=== PATIENT | female | born 2000 | race Hispanic/Latino ===

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

== ENCOUNTER 2022-12-08 00:02 | Emergency (ER) | payer MEDICAID ==
[~2022-12-08] VITALS: Ht 172.7 cm; Wt 56.7 kg
[2022-12-08] MEDS ORDERED: MAG/ALUM/SIMETH 30 ML UDCUP PO ONE (00:30)
[2022-12-08] MEDS ORDERED: DICYCLOMINE HCL 10 MG/5 ML ML PO ONE (00:30)
[2022-12-08] MEDS ORDERED: ONDANSETRON 4MG INJ IVP ONE ×2 (00:30→10:00)
[2022-12-08 00:51] LABS: BASOPHILS % (AUTO) 0.5 % (0.0-5.0); EOSINOPHILS % (AUTO) 2.7 % (0.0-8.0); HEMATOCRIT 37.8 % (36-48); MEAN CORPUSCULAR HEMOGLOBIN 29.1 pg (27.0-33.0); MEAN CORPUSCULAR HGB CONC 33.6 g/dL (32.0-36.0); MEAN CORPUSCULAR VOLUME 86.5 fL (80-100); MONOCYTES % (AUTO) 6.2 % (3.0-13.0); NEUTROPHILS % (AUTO) 53.5 % (40.0-77.0); PLATELET COUNT (AUTO) 245 K/uL (130-400); RED BLOOD CELL COUNT(AUTO) 4.37 MIL/uL (4.00-5.50); RED CELL DISTRIBUTION WIDTH 12.5 % (11.0-15.5)
[2022-12-08 01:00] LABS: CREATININE 0.6 mg/dL (0.5-1.5); POTASSIUM 3.1 mmol/L (3.5-5.1)
[2022-12-08 01:04] LABS: ALBUMIN 4.1 g/dL (3.5-5.0); TOTAL PROTEIN, SERUM 7.8 g/dL (6.0-8.3)
[2022-12-08 02:19] LABS: APPEARANCE,URINE CLEAR (CLEAR); BILIRUBIN,URINE NEGATIVE (NEGATIVE); COLOR,URINE COLORLESS (YELLOW); GLUCOSE, URINE (UA) NEGATIVE (NEGATIVE); KETONES,URINE NEGATIVE (NEGATIVE); LEUKOCYTE ESTERASE ,URINE NEGATIVE Leu/uL (NEGATIVE); NITRATE,URINE NEGATIVE (NEGATIVE); OCCULT BLOOD,URINE NEGATIVE (NEGATIVE); PH,URINE 6.5 (5.0-8.0); PROTEIN,URINE NEGATIVE (NEGATIVE); UROBILINOGEN,URINE 0.2 mg/dL (0.2-1.0)
[2022-12-08 02:24] LABS: HCG,QUALITATIVE URINE NEGATIVE (NEGATIVE)
[2022-12-08] MEDS ORDERED: POTASSIUM BICARB/CIT AC 25 MEQ TABLET.EFF PO ONE (02:30)
[2022-12-08] MEDS ORDERED: 0.9%NACL 1000ML 1,000 ML IV ONE (02:30)
[2022-12-08] MEDS ORDERED: MORPHINE 4 MG SYG IVP ONE (02:30)
[2022-12-08] MEDS ORDERED: KETOROLAC 30MG VIAL (30MG/ML) IVP ONE (04:30)
[2022-12-08] MEDS ORDERED: IOHEXOL 350 MG/ML 100ML INFUS..BTL IV ONE (06:22)
[2022-12-08] MEDS ORDERED: ONDA4TAB10 PO (09:50)
[2022-12-08] MEDS ORDERED: DICY20TA2 PO (09:50)
[2022-12-08] MEDS ORDERED: TRAM50TA4 PO (09:50)
[2022-12-08] MEDS ORDERED: MORPHINE 2 MG SYG IVP ONE (10:00)
[2022-12-08 11:04] VITALS: BP 106/60
[2022-12-09] MEDS ORDERED: HYDR-4060 PO (12:03)
== END 2022-12-08 11:38 | disposition home or self-care (01) ==
LOC: EDH 00:02
DX: R10.84 Generalized abdominal pain (principal); R11.0 Nausea; R19.7 Diarrhea, unspecified; F41.9 Anxiety disorder, unspecified; F32.9 Major depressive disorder, single episode, unspecified; J45.909 Unspecified asthma, uncomplicated; Z91.010 Allergy to peanuts
CPT/HCPCS: 99285; 74177; 96374; 96375; 96361; 82270; 80053; 83690; 85025; 81003; 81025; 36415; 96376; J7030; J2405 ×2; J2270; J1885; Q9967

== ENCOUNTER 2023-09-07 15:06 | Emergency (ER) | payer MEDICAID, OTHER ==
[~2023-09-07] VITALS: Ht 172.7 cm; Wt 58.1 kg
[~2023-09-07 15:06] MED LIST: DICY20TA2 PO; HYDR-4060 PO; ONDA4TAB10 PO; TRAM50TA4 PO
[2023-09-07] MEDS ORDERED: METOCLOPRAMIDE 10 MG/2 ML VIAL IVP ONE (15:30)
[2023-09-07] MEDS ORDERED: DEXAMETHASONE SOD PHOSPHATE 4 MG/ML 1ML VIAL IVP ONE (15:30)
[2023-09-07] MEDS ORDERED: 0.9%NACL 1000ML 1,000 ML IV ONE (15:30)
[2023-09-07] MEDS ORDERED: DiphenhydrAMINE HCL 50 MG/ML VIAL IV ONE (15:30)
[2023-09-07 16:13] LABS: BASOPHILS # (AUTO) 0.03 K/uL (0.00-0.20); BASOPHILS % (AUTO) 0.5 % (0.0-5.0); EOSINOPHILS # (AUTO) 0.19 K/uL (0.00-0.70); EOSINOPHILS % (AUTO) 3.2 % (0.0-8.0); HEMATOCRIT 34.5 % (36-48); IMMATURE GRANULOCYTE ABSOLUTE 0.02 K/uL (0-1); LYMPHOCYTES # (AUTO) 1.8 K/uL (1.0-4.8); LYMPHOCYTES % (AUTO) 29.9 % (21.0-51.0); MEAN CORPUSCULAR HEMOGLOBIN 29.6 pg (27.0-33.0); MEAN CORPUSCULAR HGB CONC 33.3 g/dL (32.0-36.0); MEAN CORPUSCULAR VOLUME 88.9 fL (80-100); MONOCYTES # (AUTO) 0.4 K/uL (0.1-1.0); NEUTROPHILS # (AUTO) 3.6 K/uL (1.8-7.7); NEUTROPHILS % (AUTO) 60.1 % (40.0-77.0); PLATELET COUNT (AUTO) 250 K/uL (130-400); RED BLOOD CELL COUNT(AUTO) 3.88 MIL/uL (4.00-5.50); RED CELL DISTRIBUTION WIDTH 12.4 % (11.0-15.5)
[2023-09-07 16:24] LABS: CREATININE 0.6 mg/dL (0.5-1.5); POTASSIUM 3.9 mmol/L (3.5-5.1)
[2023-09-07 16:28] LABS: ALBUMIN 3.7 g/dL (3.5-5.0); BILIRUBIN,TOTAL 0.1 mg/dL (0.2-1.0); TOTAL PROTEIN, SERUM 7.3 g/dL (6.0-8.3)
[2023-09-07 16:42] LABS: APPEARANCE,URINE CLOUDY (CLEAR); BILIRUBIN,URINE NEGATIVE (NEGATIVE); COLOR,URINE YELLOW (YELLOW); GLUCOSE, URINE (UA) NEGATIVE (NEGATIVE); KETONES,URINE 5 mg/dL (NEGATIVE); LEUKOCYTE ESTERASE ,URINE NEGATIVE Leu/uL (NEGATIVE); NITRATE,URINE NEGATIVE (NEGATIVE); OCCULT BLOOD,URINE MODERATE (NEGATIVE); PROTEIN,URINE 20 mg/dL (NEGATIVE); UROBILINOGEN,URINE 0.2 mg/dL (0.2-1.0)
[2023-09-07 16:43] LABS: HCG,QUALITATIVE URINE NEGATIVE (NEGATIVE)
[2023-09-07 16:49] LABS: ADD UA MICROSCOPIC YES
[2023-09-07 17:02] LABS: BACTERIA,URINE RARE /HPF (None Seen); MUCUS,URINE FEW LPF (None Seen); SQUAMOUS EPITHELIAL CELL,UR FEW /HPF (0-2); UNCLASSIFIED CRYSTAL 6 /HPF (None Seen)
[2023-09-07 17:44] VITALS: BP 109/63; PULSE 64; RESP 16; O2SAT 100
[2023-09-07] MEDS ORDERED: FIORIT PO (17:46)
== END 2023-09-07 17:50 | disposition home or self-care (01) ==
LOC: EDH 15:06
DX: G44.209 Tension-type headache, unspecified, not intractable (principal); F41.9 Anxiety disorder, unspecified; F32.A Depression, unspecified; K21.9 Gastro-esophageal reflux disease without esophagitis; J45.909 Unspecified asthma, uncomplicated; Z79.899 Other long term (current) drug therapy; Z91.010 Allergy to peanuts
CPT/HCPCS: 99285; 96374; 70450; 96375; 96361; 80053; 85025; 85651; 86140; 81001; 81025; 36415; J1100; J1200; J2765

== ENCOUNTER 2023-09-17 03:02 | Emergency (ER) | payer OTHER ==
[~2023-09-17] VITALS: Ht 172.7 cm; Wt 58.1 kg
[~2023-09-17 03:02] MED LIST changes: +FIORIT PO
[2023-09-17] MEDS ORDERED: METOCLOPRAMIDE 10 MG/2 ML VIAL IVP ONE (03:30)
[2023-09-17] MEDS ORDERED: KETOROLAC 30MG VIAL (30MG/ML) IVP ONE (03:30)
[2023-09-17] MEDS ORDERED: DiphenhydrAMINE HCL 50 MG/ML VIAL IV ONE (03:30)
[2023-09-17] MEDS ORDERED: DEXAMETHASONE SOD PHOSPHATE 4 MG/ML 1ML VIAL ONE (04:23)
[2023-09-17] MEDS ORDERED: DEXAMETHASONE SOD PHOSPHATE 4 MG/ML 1ML VIAL IVP ONE (04:30)
[2023-09-17] MEDS ORDERED: BUPIVACAINE/PF 0.5% 30ML VIAL ONE (05:14)
[2023-09-17 05:56] VITALS: BP 110/65; PULSE 75; RESP 16; O2SAT 98
== END 2023-09-17 06:02 | disposition home or self-care (01) ==
LOC: EDH 03:02
DX: G43.909 Migraine, unspecified, not intractable, without status migrainosus (principal); F41.9 Anxiety disorder, unspecified; F32.A Depression, unspecified; K21.9 Gastro-esophageal reflux disease without esophagitis; J45.909 Unspecified asthma, uncomplicated; Z79.899 Other long term (current) drug therapy; Z91.010 Allergy to peanuts
CPT/HCPCS: 99284; 96374; 96375; J1100; J1200; J1885; J0665; J2765

== ENCOUNTER 2024-07-06 20:56 | Emergency (ER) | payer SELFPAY ==
[~2024-07-06] VITALS: Ht 172.7 cm; Wt 59.0 kg
[~2024-07-06 20:56] MED LIST changes: +ONDA-243 PO; -ONDA4TAB10 PO
[2024-07-06 21:38] LABS: BASOPHILS # (AUTO) 0.03 K/uL (0.00-0.20); BASOPHILS % (AUTO) 0.5 % (0.0-5.0); EOSINOPHILS # (AUTO) 0.26 K/uL (0.00-0.70); EOSINOPHILS % (AUTO) 3.9 % (0.0-8.0); HEMATOCRIT 33.4 % (36-48); IMMATURE GRANULOCYTE ABSOLUTE 0.01 K/uL (0-1); LYMPHOCYTES % (AUTO) 45.9 % (21.0-51.0); MEAN CORPUSCULAR HEMOGLOBIN 30.2 pg (27.0-33.0); MEAN CORPUSCULAR HGB CONC 34.7 g/dL (32.0-36.0); MONOCYTES # (AUTO) 0.4 K/uL (0.1-1.0); MONOCYTES % (AUTO) 6.4 % (3.0-13.0); NEUTROPHILS # (AUTO) 2.9 K/uL (1.8-7.7); NEUTROPHILS % (AUTO) 43.1 % (40.0-77.0); PLATELET COUNT (AUTO) 202 K/uL (130-400); RED BLOOD CELL COUNT(AUTO) 3.84 MIL/uL (4.00-5.50); RED CELL DISTRIBUTION WIDTH 12.6 % (11.0-15.5); WHITE BLOOD COUNT (AUTO) 6.6 K/uL (4.8-10.8)
[2024-07-06] MEDS: ONDANSETRON 4MG INJ IVP ONE (21:47)
[2024-07-06] MEDS: FAMOTIDINE 20MG VIAL IV ONE (21:47)
[2024-07-06] MEDS: MORPHINE 2 MG SYG IVP ONE (21:48)
[2024-07-06] MEDS: 0.9%NACL 1000ML 1,000 ML IV ONE (21:48)
[2024-07-06 21:50] LABS: APPEARANCE,URINE CLEAR (CLEAR); BILIRUBIN,URINE NEGATIVE (NEGATIVE); COLOR,URINE COLORLESS (YELLOW); CREATININE 0.6 mg/dL (0.5-1.0); GLUCOSE, URINE (UA) NEGATIVE (NEGATIVE); KETONES,URINE NEGATIVE (NEGATIVE); LEUKOCYTE ESTERASE ,URINE NEGATIVE Leu/uL (NEGATIVE); NITRATE,URINE NEGATIVE (NEGATIVE); OCCULT BLOOD,URINE NEGATIVE (NEGATIVE); PH,URINE 6.5 (5.0-8.0); POTASSIUM 3.2 mmol/L (3.5-5.1); PROTEIN,URINE NEGATIVE (NEGATIVE); UROBILINOGEN,URINE 0.2 mg/dL (0.2-1.0)
[2024-07-06 21:52] LABS: HCG,QUALITATIVE URINE NEGATIVE (NEGATIVE)
[2024-07-06 21:54] LABS: ALBUMIN 3.7 g/dL (3.5-5.0); BILIRUBIN,TOTAL 0.3 mg/dL (0.2-1.0)
[2024-07-06 21:57] LABS: ADD UA MICROSCOPIC NO
[2024-07-06] MEDS ORDERED: IOHEXOL-350 75 ML VIAL IV ONE (22:40)
[2024-07-06] MEDS ORDERED: MOM30 PO (23:48)
[2024-07-06] MEDS ORDERED: SENN8.6T20 PO (23:48)
[2024-07-07 00:14] VITALS: BP 117/74; PULSE 70; RESP 17; O2SAT 99
[2024-07-07] MEDS: [UNRECOGNIZED DRUG - OTHER] PO ONE (00:29)
== END 2024-07-07 00:35 | disposition home or self-care (01) ==
LOC: EDH 20:56
DX: K59.00 Constipation, unspecified (principal); R10.13 Epigastric pain; K21.9 Gastro-esophageal reflux disease without esophagitis; J45.909 Unspecified asthma, uncomplicated; F32.A Depression, unspecified; F41.9 Anxiety disorder, unspecified; Z91.010 Allergy to peanuts; Z79.899 Other long term (current) drug therapy
CPT/HCPCS: 99285; 74178; 96374; 96375; 83690; 80053; 85025; 81003; 81025; 36415; J3490; J2270; J7030; J2405; Q9967

== ENCOUNTER 2025-10-31 14:44 | Emergency (ER) | payer SELFPAY ==
[~2025-10-31] VITALS: Ht 172.7 cm; Wt 73.9 kg
[~2025-10-31 14:44] MED LIST changes: +MOM30 PO; +SENN8.6T20 PO
[2025-10-31] MEDS ORDERED: MICO45CR77 VG (15:22)
--- NOTE | 2025-10-31 15:22 | ERN ---
General Chief Complaint: Other Problems Stated Complaint: FEELS LIKE VAGINA PROLAPSE Time Seen by MD: 14:48 Source: patient History of Present Illness Initial Comments PATIENT IS A 24-YEAR-OLD FEMALE COMING IN COMPLAINING OF VAGINAL DISCOMFORT. PATIENT STATES THAT EARLIER TODAY WHILE BATHING SHE SAW SOMETHING FOR TREATING FOR VAGINAL AREA BELIEVES IT MIGHT HAVE BEEN IN HER UTERUS. Allergies: Coded Allergies: peanut (Unverified Allergy, Unknown, 01/30/20) Home Meds Active Scripts Magnesium Hydroxide (Milk of Magnesium 30Ml) 400 Mg/5 Ml Susp, 30 ML PO TID for constipation, #200 ML Prov:ABBY BOYD MD 07/06/24 Sennosides (Senna Laxative) 8.6 Mg Tablet, 8.6 MG PO DAILYDINNER for constipation, #30 TAB Prov:ABBY BOYD MD 07/06/24 Butalb/Acetaminophen/Caffeine (Fioricet) 50 Mg-325 Mg-40 Mg Tab, 1 TAB PO Q6HPRN PRN for HEADACHE, #30 TAB Prov:FITO ANDRES [employer] 09/07/23 Hydrocodone/Acetaminophen (Hydrocodon-Acetaminophen 5-325) 1 Each Tablet, 1 EACH PO Q6H for pain, #12 TAB 0 Refills Prov:LAURA THOMAS MD 12/09/22 Ondansetron (Ondansetron Odt) 4 Mg Tab.rapdis, 4 MG PO Q6HPRN PRN for nausea, #16 TAB 0 Refills Prov:LAURA THOMAS MD 12/08/22 Tramadol Hcl (Tramadol HCl) 50 Mg Tablet, 50 MG PO QID for pain, #12 TAB 0 R efills Prov:LAURA THOMAS MD 12/08/22 Dicyclomine HCl (Bentyl) 20 Mg Tab, 20 MG PO QID for abd pain, #30 TAB 0 Refills Prov:LAURA THOMAS MD 12/08/22 Past Medical History Past Medical History: Anxiety, Asthma, Depression, GERD Medical History Other: GASTRITIS, Past Surgical History: Other Surgical History Other: EGD, COLONOSCOPY Family History Family History: Negative Social History Social History: Negative, Lives with family ROS Dictation CONSTITUTIONAL: NO CHILLS, NO FEVER, NO WEAKNESS, NO DIAPHORESIS, NO MALAISE. HEAD/FACE: NO SIGNS OF TRAUMA. EENT: NO EYE PAIN, NO BLURRED VISION, NO TEARING, NO DOUBLE VISION, NO EAR PAIN, NO EAR DISCHARGE, NO NOSE PAIN, NO NASAL CONGESTION, NO THROAT PAIN, NO THROAT SWELLING, NO MOUTH PAIN. RESPIRATORY: NO COUGH, NO ORTHOPNEA, NO SOB, NO STRIDOR, NO WHEEZING. CARDIOVASCULAR: NO CHEST PAIN, NO EDEMA, NO PALPITATIONS, NO SYNCOPE. GASTROINTESTINAL/ABDOMINAL: NO ABDOMINAL PAIN, NO CONSTIPATION, NO DIARRHEA, NO NAUSEA, NO VOMITING. GENITOURINARY: NO ABNORMAL DISCHARGE, NO DYSURIA, NO FREQUENT URINATION, NO HEMATURIA. COMPLAINTS OF PAIN IN THE GENITALS. MUSCULOSKELETAL: NO BACK PAIN, NO GOUT, NO JOINT PAIN, NO JOINT SWELLING, NO MUSCLE PAIN, NO MUSCLE STIFFNESS, NO NECK PAIN. INTEGUMENTARY: NO CHANGE IN COLOR, NO CHANGE IN HAIR/NAILS, NO DRYNESS, NO L ESION, NO LUMPS, NO RASH. NEUROLOGICAL/PSYCH: NO ANXIETY, NOT DEPRESSED, NO EMOTIONAL PROBLEM, NO HEADACHE, NO NUMBNESS, NO PRE-EXISTING DEFICIT, NO HISTORY OF SEIZURES, NO TREMORS, NO WEAKNESS. HEMATOLOGIC/LYMPHATIC: NOT ANEMIC, NO HISTORY OF BLOOD CLOTS, NO APPARENT BLEEDING, NO BRUISING, GLANDS NOT SWOLLEN. ALL SYSTEMS NEGATIVE, EXCEPT NOTED. Physical Exam Physical Exam Dictation VITAL SIGNS: REVIEWED. GENERAL APPEARANCE: ALERT, ORIENTED X3, NO ACUTE DISTRESS, OBESE. HEAD AND FACE: NON-TRAUMATIC. EYES: PERRL, PINK CONJUNCTIVAS, EYELID NO TRAUMA, ANTERIOR CHAMBER CLEAR. EARS: PINNAS INTACT AND NO SIGNS OF TRAUMA OR ERYTHEMA. EAR CANALS CLEAR AND NO DISCHARGE. TMS NO ERYTHEMA. NOSE: NO DISCHARGE, NO BLEEDING. OROPHARYNX: MOUTH NORMAL, TEETH NO CARIES, TONGUE PINK. PHARYNX CLEAR, NO ERYTHEMA. TONSILS NO EXUDATES, NO ABSCESSES NOTED. MUCOUS MEMBRANE MOIST. NECK: SUPPLE, NON-TENDER, NO THYROMEGALY, NO MASSES, NO JVD, NO BRUITS. BREAST: DEFERRED. CHEST: NO TENDERNESS, NO CREPITUS, NO PARADOXICAL MOVEMENT, NO RETRACTIONS. LUNGS: CLEAR, WELL-VENTILATED, SYMMETRIC, NO RALES, NO WHEEZING, NO RHONCHI, NO STRIDOR, GOOD BREATH SOUNDS BILATERALLY. HEART: REGULAR RATE, REGULAR RHYTHM, NO MURMUR, NO GALLOPS. VASCULAR: NO PERIPHERAL EDEMA. ABDOMEN: SOFT, POSITIVE BOWEL SOUNDS, NONDISTENDED, NO GUARDING, NONTENDER, NO REBOUND, NO MASSES NO HEPATOMEGALY, NO SPLENOMEGALY, NO RENEE'S SIGN, NO HERNIAS. RECTAL: DEFERRED. GENITAL: CHAPERONED BY NURSE UNABLE TO PERFORM COMPLETE PELVIC EXAM, PATIENT STATES SHE COULD NOT TOLERATE THE PROCEDURE. WHITE DISCHARGE NEUROLOGICAL: NORMAL SPEECH, GROSS MOTOR FUNCTION INTACT, GROSS SENSORY FUNCTION INTACT. MUSCULOSKELETAL: NECK NONTENDER, FULL RANGE OF MOTION, BACK NONTENDER, FULL RANGE OF MOTION. EXTREMITIES: NONTENDER, FULL RANGE OF MOTION. SKIN: COLOR PINK, DRY, NO TURGOR, NO RASH, NO LACERATIONS, NO ABRASIONS, NO CONTUSIONS. LYMPHATICS: DEFERRED. Results Laboratory and Microbiology Labs Reviewed?: Yes MDM MDM: DIFFERENTIAL DIAGNOSIS: VAGINAL DISCOMFORT, VAGINITIS, MELISSA VAGINITIS, RATIONALE: TESTS CONSIDERED AND ORDERED SECONDARY TO SHARED DECISION MAKING INCLUDE: PREVIOUS OUTSIDE RECORDS REVIEWED: OLD ER VISITS. RISK OF COMPLICATION AND/OR MORBIDITY OR MORTALITY OF PATIENT MANAGEMENT: NONE MEDICATIONS-PER MEDICATION RECONCILIATION NEED FOR HOSPITALIZATION: PATIENT DOES NOT MEET CRITERIA FOR HOSPITALIZATION. NEED FOR EMERGENCY MAJOR/MINOR SURGERY: NO PATIENT IS A 24-YEAR-OLD FEMALE COMING IN COMPLAINING OF VAGINAL DISCOMFORT. ON PHYSICAL EXAM NO ABNORMALITY ON ANATOMY ON THE OUTSIDE, PARTIAL BIMANUAL EXAM PRODUCED WHITE DISCHARGE CONSISTENT WITH MELISSA VAGINITIS. MEDICATION WILL BE PROVIDED FOR SYMPTOMATIC RELIEF. ED Course Vital Signs Date Time Temp Pulse Resp B/P (MAP) Pulse Ox O2 Delivery O2 Flow Rate FiO2 10/31/25 14:48 98.2 81 16 123/67 97 Room Air DX & DISP Disposition: Discharge Departure Impression: Primary Impression: Melissa vaginitis Condition: Stable Scripts Miconazole Nitrate (Monistat 7) 2 % Cream.appl 1 BRIGIDO VG HS for 7 Days, #45 GM 0 Refills Prov: KATHERINE DEL REAL MD 10/31/25 Additional Instructions: FOLLOW-UP WITH PRIMARY CARE PROVIDER IN 1 TO 2 DAYS. TAKE MEDICATIONS DIRECTED HERE IN THE EMERGENCY ROOM. OKAY TO CONTINUE HOME MEDICATIONS UNLESS OTHERWISE DISCUSSED DURING YOUR VISIT IN THE EMERGENCY ROOM TODAY. RETURN TO YOUR NEAREST EMERGENCY ROOM IF SYMPTOMS WORSEN OR IF THERE IS NO IMPROVEMENT. CALL 911 IF YOU NEED IMMEDIATE ASSISTANCE. TAKE TYLENOL [id number] NEEDED AND IF NO CONTRAINDICATIONS ARE PRESENT. INCREASE ORAL HYDRATION. A WOUND CULTURE OR URINE CULTURE WAS ORDERED HERE IN THE EMERGENCY ROOM DEPARTMENT PLEASE FOLLOW-UP WITH PRIMARY CARE PROVIDER AND ADVISE THEM TO GET REPORTS FROM OUR FACILITY. IF YOU HAD ANY WALI WRAP/SPLINTS THAT WERE APPLIED HERE, PLEASE DO NOT REMOVE THEM UNTIL YOU SEE YOUR PRIMARY CARE OR SPECIALTY. REFERRALS: Referrals: TATIANA MILLS M.D. (PCP) SANTI MURILLO MD Time of Disposition: 15:21 KATHERINE DEL REAL MD Oct 31, 2025 15:22
[2025-10-31 15:29] VITALS: BP 114/52; PULSE 77; RESP 18; TEMP 98.6; O2SAT 100
== END 2025-10-31 15:58 | disposition home or self-care (01) ==
LOC: EDH 14:44
DX: B37.31 Acute candidiasis of vulva and vagina (principal); J45.909 Unspecified asthma, uncomplicated; Z87.19 Personal history of other diseases of the digestive system; Z91.010 Allergy to peanuts
CPT/HCPCS: 99282; 99284